=== PATIENT | female | born 1975 | race African-American/Black ===

== ENCOUNTER 2024-01-31 15:38 | Outpatient (CLI) | payer OTHER | END 2024-01-31 15:39 | disposition home or self-care (01) | LOC: BICMAMMO 15:38 → MERGE 15:45 | PROVIDERS: ATTEND Family Medicine | DX: Z12.31 Encounter for screening mammogram for malignant neoplasm of breast (principal); Z91.89 Other specified personal risk factors, not elsewhere classified | CPT/HCPCS: 77063; 77067 ==

== ENCOUNTER 2025-02-01 13:48 | Outpatient (CLI) | payer OTHER | END 2025-02-01 13:49 | disposition home or self-care (01) | LOC: ULT 13:48 | PROVIDERS: ATTEND Student in an Organized Health Care Education/Training Program | DX: E04.9 Nontoxic goiter, unspecified (principal) | CPT/HCPCS: 76536 ==